=== PATIENT | female | born 1985 | race African-American/Black ===

== ENCOUNTER 2017-02-18 12:10 | Emergency (ER) | payer MEDICAID, OTHER ==
[~2017-02-18] VITALS: Ht 154.9 cm; Wt 54.9 kg
[~2017-02-18 12:10] MED LIST: DIPH50CA37 PO; HYDR-548 PO; HYDR4TAB4 PO; LORA2TAB95 PO; METO5TAB87 PO; ZOLP5TAB2 PO; [UNRECOGNIZED DRUG - CODE] PO
[2017-02-18] MEDS ORDERED: HYDROCODONE/APAP 5-325MG TABLET PO ONE (12:30)
--- NOTE | 2017-02-18 12:30 | NUR ---
Pt was seen by Dr. Ac and informed she would not be getting IV pain medication. Pt became upset and walked out of ER with steady gait.
--- NOTE | 2017-02-18 12:34 | NUR ---
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 i looked for the pt in the waiting room and outside. also waited for the pt to return, pt did not. It wasthen concluded that the pt eloped, dr tom wasnotified and ekg and labs not done.
== END 2017-02-18 12:39 | disposition left against medical advice (07) ==
LOC: ER 12:10
DX: Z53.21 Procedure and treatment not carried out due to patient leaving prior to being seen by health care provider (principal)
CPT/HCPCS: A4663